=== PATIENT | male | born 1980 | race Two or more races ===

== ENCOUNTER 2019-12-25 10:19 | Emergency (ER) | payer OTHER ==
[~2019-12-25] VITALS: Ht 180.3 cm; Wt 93.0 kg
== END 2019-12-25 18:24 | disposition home or self-care (01) ==
LOC: ER 10:19
DX: N20.1 Calculus of ureter (principal)

== ENCOUNTER 2019-12-31 11:40 | Outpatient (CLI) | payer OTHER | END 2019-12-31 11:53 | disposition home or self-care (01) | LOC: LAB 11:40 | PROVIDERS: ATTEND Specialist | DX: N40.0 Benign prostatic hyperplasia without lower urinary tract symptoms (principal); D68.8 Other specified coagulation defects; I10 Essential (primary) hypertension; Z20.828 Contact with and (suspected) exposure to other viral communicable diseases; N20.0 Calculus of kidney; J18.0 Bronchopneumonia, unspecified organism ==